=== PATIENT | male | born 1995 | race Two or more races ===

== ENCOUNTER 2018-02-26 06:57 | Emergency (ER) | payer MEDICAID ==
[~2018-02-26] VITALS: Ht 182.9 cm; Wt 85.0 kg
[2018-02-26 07:23] VITALS: BP 147/84
== END 2018-02-26 09:21 | disposition home or self-care (01) ==
LOC: ED 09:00
DX: Z00.00 Encounter for general adult medical examination without abnormal findings (principal); F41.1 Generalized anxiety disorder
CPT/HCPCS: 99281